=== PATIENT | male | born 1975 | race African-American/Black ===

== ENCOUNTER 2017-01-29 11:24 | Emergency (ER) | payer OTHER ==
[~2017-01-29] VITALS: Ht 175.3 cm; Wt 97.7 kg
[2017-01-29] MEDS ORDERED: diphenhydrAMINE INJ 50MG/ML VIAL (J1200) IV STA (11:47)
[2017-01-29] MEDS ORDERED: MECLIZINE 25 MG TABLET PO ONE (12:00)
[2017-01-29] MEDS ORDERED: METOCLOPRAMIDE INJ 10MG/2ML VIAL (J2765) IV ONE (12:00)
[2017-01-29] MEDS ORDERED: NS 1,000 ML IV ONE (12:00)
--- NOTE | 2017-01-29 12:05 | REP ---
Head CT without contrast: History: Dizziness. Comparison study: No comparison. CT findings: Bone window settings demonstrate an intact bony calvarium. There is no evidence of skull fracture or incidental bony calvarial lesion. The visualized paranasal sinuses appear clear. No intraorbital abnormality is seen. On soft tissue window setting images; the lateral, third, and fourth ventricles are normal in size and position. Sanchez-white differentiation pattern is normal above and below the tentorium. There are is no evidence of intracranial hemorrhage. No mass, edema, infarction, or midline shift is seen. No extra-axial fluid collection is appreciated. Impression: Negative noncontrast head CT. Signed by Bright Wade MD 01/29/2017 11:56 A
[2017-01-29 12:32] LABS: BASO % 0.6 % (0.0-1.0); EOS # 0.1 K/mm3 (0.0-0.50); EOS % 1.6 % (0.0-3.0); LARGE UNSTAINED CELL # 0.1 K/mm3 (0.0-0.4); LARGE UNSTAINED CELL % 2.1 % (0.0-4.0); LYMPH # 1.5 K/mm3 (1.5-4.5); LYMPH % 28.7 % (24.0-44.0); MEAN CORPUSCULAR HEMOGLOBIN 28.7 pg (27.0-33.0); MONO # 0.3 K/mm3 (0.0-0.8); MONO % 6.3 % (0.0-5.0); NEUTROPHILS % 60.7 % (36.0-66.0); PLATELET COUNT, AUTOMATED 227 k/mm3 (150-450); RED CELL DISTRIBUTION WIDTH 12.4 % (11.5-14.5); WHITE BLOOD COUNT 4.9 K/mm3 (4.0-10.0)
[2017-01-29 12:57] LABS: ANION GAP 8 MEQ/L (8-16); BLOOD UREA NITROGEN 10 MG/DL (7-18); CALCIUM LEVEL 8.5 MG/DL (8.5-10.1); CARBON DIOXIDE LEVEL 28 MEQ/L (21-32); CHLORIDE LEVEL 104 MEQ/L (98-107); CREATININE FOR GFR 0.87 MG/DL (0.70-1.30); GLOMERULAR FILTRATION RATE > 60.0 (>60); GLUCOSE, FASTING 104 MG/DL (70-105); POTASSIUM SERUM 4.5 MEQ/L (3.5-5.1); SODIUM LEVEL 140 MEQ/L (136-145)
[2017-01-29] MEDS ORDERED: MECL-68 PO (13:48)
[2017-01-29] MEDS ORDERED: ZOFR4TAB3 PO (13:48)
[2017-01-29 13:49] VITALS: BP 118/69
== END 2017-01-29 13:54 | disposition home or self-care (01) ==
LOC: M ED 11:24
DX: H81.10 Benign paroxysmal vertigo, unspecified ear (principal)
CPT/HCPCS: 70450; 80048; 85025; 96361; 96374; 96375; 99283; J1200; J2765

== ENCOUNTER 2019-10-20 20:44 | Emergency (ER) | payer OTHER ==
[~2019-10-20] VITALS: Ht 175.3 cm; Wt 100.0 kg
[2019-10-20 20:44] VITALS: BP 124/72
[~2019-10-20 20:44] MED LIST: MECL1TAB31 PO; PROT1TAB2 PO; ZOFR4TAB14 PO
[2019-10-20] MEDS ORDERED: LIDOCAINE 1% MDV 20ML VIAL SC ONE (21:15)
== END 2019-10-20 21:41 | disposition home or self-care (01) ==
LOC: M ED 20:44
DX: S51.811A Laceration without foreign body of right forearm, initial encounter (principal); W22.8XXA Striking against or struck by other objects, initial encounter; Y92.89 Other specified places as the place of occurrence of the external cause

== ENCOUNTER 2020-05-07 11:53 | Emergency (ER) | payer OTHER ==
[~2020-05-07] VITALS: Ht 175.3 cm; Wt 107.6 kg
[2020-05-07 11:54] VITALS: BP 117/65
[2020-05-07] MEDS ORDERED: CETI-24 PO (12:11)
[2020-05-07] MEDS ORDERED: TRIA1CR80 TOP (12:11)
[2020-05-07] MEDS ORDERED: methylPREDNISolone 125MG 2ML VIAL IM ONE (12:15)
[2020-05-07] MEDS ORDERED: MEDR4PAK PO (12:16)
== END 2020-05-07 12:45 | disposition home or self-care (01) ==
LOC: M ED 11:53
DX: L23.9 Allergic contact dermatitis, unspecified cause (principal); Z79.899 Other long term (current) drug therapy
CPT/HCPCS: 96372; 99282; J2930